=== PATIENT | male | born 1995 | race African-American/Black ===

== ENCOUNTER 2022-02-18 08:46 | Emergency (ER) | payer SELFPAY | END 2022-02-18 09:45 | disposition home or self-care (01) | LOC: CSHERS 08:46 | DX: H66.92 Otitis media, unspecified, left ear (principal); J45.909 Unspecified asthma, uncomplicated; F17.200 Nicotine dependence, unspecified, uncomplicated | CPT/HCPCS: 99282 ==

== ENCOUNTER 2022-10-05 13:47 | Emergency (ER) | payer SELFPAY | END 2022-10-05 17:11 | disposition home or self-care (01) | LOC: CSHERS 13:47 | DX: H66.93 Otitis media, unspecified, bilateral (principal); F17.200 Nicotine dependence, unspecified, uncomplicated | CPT/HCPCS: 99282 ==